=== PATIENT | male | born 1945 | race Caucasian/White ===

== ENCOUNTER 2022-01-09 06:54 | Observation (INO) | payer OTHER ==
[~2022-01-09] VITALS: Ht 175.3 cm; Wt 68.0 kg
[~2022-01-09 06:54] MED LIST: PRILOSEC OTC20 MG PO
[2022-01-09 07:34] VITALS: BP 143/69
[2022-01-09 07:50] LABS: HEMATOCRIT 36.3 % (42.0-52.0); HEMOGLOBIN 12.3 gm/dL (14.0-18.0); MCH 31.6 pg (26.0-34.0); MCHC 33.9 g/dL (28.0-37.0); MCV 93.3 fL (80.0-100.0); RBC 3.89 mil/uL (4.50-6.00); RDW 14.1 % (10.5-14.5); WBC 5.5 thou/uL (4.0-11.0)
[2022-01-09 07:54] LABS: CALCIUM 9.7 mg/dL (8.5-10.1); POTASSIUM 3.8 mmol/L (3.5-5.1)
[2022-01-09] MEDS ORDERED: AMIODARONE HCL400 MG PO (07:57)
[2022-01-09] MEDS ORDERED: ELIQUIS5 MG PO (07:58)
[2022-01-09 08:00] LABS: ALBUMIN 4.1 g/dL (3.4-5.0); APTT 29.4 Seconds (24.5-32.8); INR 0.99; PROTIME 10.8 Seconds (10.5-12.1); TOTAL BILIRUBIN 0.6 mg/dL (0.2-1.0); TOTAL PROTEIN 7.7 g/dL (6.4-8.2)
[2022-01-09] MEDS ORDERED: BENAZEPRIL 10 M10 MG PO (08:02)
[2022-01-09] MEDS ORDERED: COENZYME Q10100 MG PO (08:03)
[2022-01-09] MEDS ORDERED: ESTER-C 1,0001 EACH PO (08:03)
[2022-01-09] MEDS ORDERED: CARVEDILOL12.5 MG PO (08:03)
[2022-01-09] MEDS ORDERED: COLACE100 MG PO (08:04)
[2022-01-09] MEDS ORDERED: FOLIC ACID1 MG PO (08:05)
[2022-01-09] MEDS ORDERED: FUROSEMIDE 40 M40 MG PO (08:06)
[2022-01-09] MEDS ORDERED: MAGNESIUM250 M1 PO (08:07)
[2022-01-09] MEDS ORDERED: KEPPRA750 MG PO (08:07)
[2022-01-09] MEDS ORDERED: MELATONIN3 M1 PO (08:07)
[2022-01-09] MEDS ORDERED: NIACIN 500 MG500 M1 PO (08:08)
[2022-01-09] MEDS ORDERED: ROSUVASTATIN CA10 MG PO (08:08)
[2022-01-09] MEDS ORDERED: METFORMIN HCL500 M3 PO (08:08)
[2022-01-09] MEDS ORDERED: SELENIUM PO (08:09)
[2022-01-09] MEDS ORDERED: CINNAMON500 MG PO (08:10)
[2022-01-09] MEDS ORDERED: MILK THISTLE500 MG PO (08:11)
[2022-01-09] MEDS ORDERED: LECITHIN400 MG PO (08:11)
[2022-01-09] MEDS ORDERED: FLORANEX TABLE1 EACH PO (08:11)
--- NOTE | 2022-01-09 15:25 | NUR ---
LATE ENTRY 1215: PT RETURNED FROM PACU, AWAKE AND ALERT BUT DROWSY. PT C/O "SCRATCHY THROAT". PT CONNECTED TO MONITOR FOR FREQUENT MONITORING, VSS. ICD INSERTION SITE IS CLEAN DRY AND INTACT, NO SIGNS OF HEMATOMA OR OTHER COMPLICATIONS. FAMILY BROUGHT TO THE BEDSIDE AND PT INTERACTING APPROPRIATELY WITH THEM. PT TOLERATING ICE CHIPS WELL AND WILL ADVANCE TOLERATED. AWAITING ADMISSION BED ASSIGNMENT AND WILL CONTINUE TO MONITOR.
--- NOTE | 2022-01-09 15:27 | NUR ---
LATE ENTRY 1335: PT RESTING WITH EYES CLOSED AND VSS. FAMILY REMAINS AT BEDSIDE BUT HAVE REPORTED THEY WILL BE LEAVING SOON. PT HAS NO COMPLAINTS AT THIS TIME.
--- NOTE | 2022-01-09 15:28 | NUR ---
PT RESTING COMFORTABLY, VSS, NO COMPLAINTS AT THIS TIME. CONTINUING TO WAIT FOR ADMISSION BED ASSIGNMENT, PT REPORTED HE IS ANXIOUS TO GET INTO A MORE COMFORTABLE BED.
[2022-01-09 16:27] VITALS: BP 168/82
--- NOTE | 2022-01-09 18:08 | NUR ---
ADMITTED PATIENT TO UNIT AFTER RECEIVING A BIV ICD IMPLANT AT AROUND 1620. PATIENT HAS AN LEFT ARM IMMOBILIZER. PATIENT WAS ALERT AND ORIENTED X4 STILL A LITTLE GROGGY FROM ANESTISIA. PATIENT DENIED ANY PAIN, N/V, OR SOA. PLACED PATIENT ON LIFT MECHANIC. VITALS STABLE.
[2022-01-09 20:26] VITALS: BP 136/68
[2022-01-10 03:58] VITALS: BP 126/65
--- NOTE | 2022-01-10 05:43 | NUR ---
PATIENT AAOX4 RESTING IN HIS ROOM. HE IS CALM AND COOPERATIVE. STATES THAT HE FEELS GOOD AND ONLY HAS MILD PAIN TO SURGICAL SITE/ PATIENT VSS. HE IS ABLE TO URINATE VIA URINAL. HE IS AMBULATORY AND ONLY REQUIRES STANDBY ASSIST. COMPLIANT WITH MEDICATION AND TREATMENT. NO DISTRESS NOTED. WILL CONTINUE TO MONITOR FOR CHANGES IN STATUS.
[2022-01-10 08:00] VITALS: BP 147/75
[2022-01-10 10:45] VITALS: BP 147/75
--- NOTE | 2022-01-11 13:56 | P ---
[facility] [place] [address] PROCEDURE REPORT Name: VINH YAP Room #: 218-P [facility] Lisa Florian#: [id number] Admission: 01/09/22 Attend Phys: Manuel Syed MD Discharge: 01/10/22 Date of : 43 Report #: [id number] THIS REPORT FOR: cc: Osmin Niño Russell J. DO Couchonnal,Manuel Alfaro MD ~ DATE OF SERVICE: 01/09/2022 BIV ICD IMPLANTATION DATE OF SERVICE: 01/09/2022 PREOPERATIVE DIAGNOSES: 1. Ischemic cardiomyopathy. 2. [employer] functional class 3. 3. QRS duration 160 milliseconds,. 4. Atrial fibrillation. POSTOPERATIVE DIAGNOSES: 1. Ischemic cardiomyopathy. 2. [employer] functional class 3. 3. QRS duration 160 milliseconds,. 4. Atrial fibrillation. PROCEDURE PERFORMED: BiVICD implantation. HISTORY: The patient is a 76-year-old male with history of ischemic cardiomyopathy, status post CABG here for BiV ICD implantation. ANESTHESIA: The patient underwent MAC anesthesia with no anesthesia related complications. DESCRIPTION OF PROCEDURE: Prior to initiation of the procedure, the patient had a seizure that was approximately 20 seconds in duration. The patient received IV Keppra by the Anesthesiology Service. There were no further issues. As such, the patient was prepped and draped in a standard fashion, received IV antibiotics and underwent a venogram showing patency of left axillary vein. Next, lidocaine was injected below the level of left clavicle. Incision was made, pocket was created over the prepectoral fascia. Access was obtained in the left axillary vein x3 and sheaths were positioned using the modified Seldinger technique. Next, under fluoroscopy, an ICD lead was placed in the right ventricular apex and the atrial lead was placed in the right atrial appendage, both with adequate pacing and sensing thresholds. These leads were sutured to the prepectoral fascia. Next, a coronary guide sheath was placed into the CS and I obtained the CS access, but it seemed that all 3 leads in the vein made manipulation of the coronaries sheath somewhat challenging and this [facility] [address] [place] [address] PROCEDURE REPORT Name: VINH YAP Room #: 218-P [facility] Lisa MJoel.#: [id number] Admission: 01/09/22 Attend Phys: Manuel Syed MD Discharge: 01/10/22 Date of : 43 Report #: [id number] resulted in dislodgement of the atrial and ventricular lead. Therefore, the ventricular lead was repositioned. The atrial lead was repositioned several times and P waves were poor throughout and the lead would dislodge. Therefore, I removed this lead and implanted a new atrial lead and again P waves were not great, but the thresholds were satisfactory. Therefore, lead was left in a more lateral position. As such, I resutured the atrial and ventricular leads down and the coronary sinus guide sheath was already sitting in the coronary sinus. I performed a venogram and this showed a nice posterolateral branch and a quadripolar lead was placed here with ease with a grade sensing pacing thresholds and no phrenic nerve capture. As such, the coronary guide sheath was split, leads remained in position. Leads were sutured to prepectoral fascia. Device was connected, tug test performed, pocket irrigated with vancomycin and then the pocket was closed in 2 layers using 2-0 for the deep layer, 3-0 for the middle layer and surgical glue was placed to outer skin layer. There were no procedure related complications. The patient awoke neurologically and hemodynamically intact. No complications. No significant bleeding. The implanted device was a [employer] model #GXRG9IA, serial #[id number]. The atrial lead was a 5076, 52 cm, serial #[id number]. The ventricular lead was a 6935, 62 cm, serial #[id number]. The ventricular lead was a 4298, serial #[id number]. The discarded lead was a 5076, serial #[id number]. The atrial lead demonstrated P-wave of 0.6 millivolts, pacing impedance of 506 ohms and a pacing threshold of 3.1 volts at 1 millisecond. The RV lead demonstrated R waves of 10 millivolts, pacing impedance of 525 ohms and a pacing threshold of 0.5 volts at 0.5 milliseconds. The LV lead demonstrated a pacing impedance of 801 ohms, pacing threshold of 0.5 volts at 0.5 milliseconds. The device was programmed to the DDD 60-130 mode. The RV and LV leads were set to pace simultaneously and this resulted in a QRS duration that went from 160 milliseconds down to 104 milliseconds, which was a nice improvement. The VT zone was set from 180-220 beats per minute with 3 rounds of burst followed by 3 rounds of ramp followed by max output shocks. VF zone was set at greater than 220 beats per minute with ATP while charging followed by max output shocks. CONCLUSION: Successful BiV ICD implantation. <ELECTRONICALLY SIGNED> By: Manuel Syed MD 01/11/22 1356 [id number] Manuel Syed MD /nt
== END 2022-01-10 11:00 | disposition home or self-care (01) ==
LOC: CATH 06:54 → 2N 16:22 → CATH 17:28 → 2N 01-10 11:00
PROVIDERS: ADMIT Internal Medicine Cardiovascular Disease; ATTEND Internal Medicine Cardiovascular Disease
DX: I25.5 Ischemic cardiomyopathy (principal); I25.10 Atherosclerotic heart disease of native coronary artery without angina pectoris; Z20.822 Contact with and (suspected) exposure to COVID-19; I11.0 Hypertensive heart disease with heart failure; I50.22 Chronic systolic (congestive) heart failure; I48.91 Unspecified atrial fibrillation; E78.5 Hyperlipidemia, unspecified; E11.9 Type 2 diabetes mellitus without complications; I34.0 Nonrheumatic mitral (valve) insufficiency; I36.1 Nonrheumatic tricuspid (valve) insufficiency; G40.909 Epilepsy, unspecified, not intractable, without status epilepticus; Z86.73 Personal history of transient ischemic attack (TIA), and cerebral infarction without residual deficits; Z79.84 Long term (current) use of oral hypoglycemic drugs; Z79.899 Other long term (current) drug therapy; Z88.5 Allergy status to narcotic agent; Z88.8 Allergy status to other drugs, medicaments and biological substances; Z95.1 Presence of aortocoronary bypass graft